=== PATIENT | female | born 1975 | race Caucasian/White ===

== ENCOUNTER 2017-05-28 22:13 | Emergency (ER) | payer OTHER ==
[2017-05-28 22:21] VITALS: BP 157/97; PULSE 76; TEMP 98.3; BMI 24.3
--- NOTE | 2017-05-28 22:27 | PDOC ---
History of Present Illness - General Chief Complaint: Chest Pain Stated Complaint: CHEST PAIN Time Seen by Provider: 05/28/17 22:19 - History of Present Illness Initial Comments: 05/28/17 22:37 This otherwise healthy 41-year-old woman presents with a few hour history of right sided anterior chest pain, worsened with coughing/laughing but not worsened with deep breathing. She denies shortness of breath or severe cough. She has not had any recent trauma or overuse involving upper body muscles. She denies fever or chills; no upper respiratory infection symptoms. Of note, her school-aged daughter has febrile viral illness. The patient has developed labial herpes "cold sore" earlier today. No history of hypertension/diabetes mellitus/obesity/hyperlipidemia/early history of cardiac disease in family No history of smoking/lower extremity pain or edema/prolonged immobilization/ recent surgery or malignancy/estrogen therapy Past History - Past Medical History Allergies/Adverse Reactions: Allergies Allergy/AdvReac Type Severity Reaction Status Date / Time No Known Allergies Allergy Verified 05/28/17 22:15 Home Medications: Ambulatory Orders Levothyroxine Sodium [Synthroid] 137 mcg PO DAILY 05/28/17 COPD: No Thyroid Disease: Yes - Suicide/Smoking/Psychosocial Hx Smoking History: Never smoked Have you smoked in the past 12 months: No Information on smoking cessation initiated: No Hx Alcohol Use: No Drug/Substance Use Hx: No Substance Use Type: None Review of Systems - Review of Systems Able to Perform ROS?: Yes Comments:: 12 point review of systems is negative except for what is noted in the history of present illness *Physical Exam - Vital Signs Last Vital Signs Temp Pulse Resp BP Pulse Ox 98.3 F 76 16 157/97 100 05/28/17 22:17 05/28/17 22:17 05/28/17 22:17 05/28/17 22:17 05/28/17 22:17 - Physical Exam Comments: GENERAL: Adult female, alert and oriented 3, in no acute distress; heart rate 79; pulse oximetry 100% on room air HEAD: Normal with no signs of trauma. EYES: PERRLA, EOMI, sclera anicteric, conjunctiva clear. ENT: Ears normal, nares patent, oropharynx clear without exudates. Moist mucous membranes. NECK: Normal range of motion, supple without lymphadenopathy, JVD, or masses. LUNGS: Breath sounds equal, clear to auscultation bilaterally. No wheezes, and no crackles. No chest wall tenderness/crepitus/step offs HEART:Regular rate and rhythm, normal S1 and S2 without murmur, rub or gallop. ABDOMEN:.normal bowel sounds No guarding,tenderness or rebound.No masses No distention. EXTREMITIES: Normal range of motion, no edema. No clubbing or cyanosis. No erythema, or tenderness. NEUROLOGICAL: Cranial nerves II through XII grossly intact. Normal speech. No focal neurological deficits. MUSCULOSKELETAL: Back non-tender to palpation, no CVA tenderness SKIN: Warm, Dry, normal turgor, no rashes or lesions noted. Twelve-lead electrocardiogram reveals a sinus rhythm at 71 bpm; there is no evidence of acute ST or T-wave abnormality; axis, waveforms and intervals are normal ED Treatment Course - LABORATORY CBC & Chemistry Diagram: 05/28/17 22:40 05/28/17 22:40 - ADDITIONAL ORDERS Additional order review: Laboratory Results 05/28/17 05/28/17 22:40 22:40 D-Dimer < 200 Sodium 139 Potassium 3.9 Chloride 104 Carbon Dioxide 29 H Anion Gap 6 L BUN 15 Creatinine 0.8 Creat Clearance w eGFR > 60 Random Glucose 123 H Calcium 9.0 Total Bilirubin 0.5 AST 25 ALT 22 Alkaline Phosphatase 43 Creatine Kinase 204 H Creatine Kinase Index 1.4 CK-MB (CK-2) 2.9 Troponin I < 0.03 L Total Protein 6.6 Albumin 4.0 05/28/17 22:40 RBC 4.14 MCV 93.7 MCHC 35.7 RDW 12.0 MPV 8.6 Neutrophils % 40.5 L Lymphocytes % 46.4 H Monocytes % 8.2 Eosinophils % 4.5 Basophils % 0.4 Progress Note - Progress Note Progress Note: 12-lead electrocardiogram shows normal sinus rhythm at 71 bpm; intervals/axis and wave forms are all normal. No evidence of acute ST or T-wave abnormalities. Laboratory evaluation including cardiac enzymes and d-dimer are normal. Clinical presentation most consistent with costochondritis or chest wall muscle strain. Since the patient has been exposed to acute viral infection in her daughter over the last several days, and has developed herpes labialis of the last 24 hours, she may also be developing acute viral infection. In any case, she should rest and drink plenty of fluids. She should avoid strenuous upper body exercise for the next several days. She can use nonsteroidal anti- inflammatories as needed for her chest wall pain. She should return to the emergency room if she has severe symptoms that are persistent. Meanwhile, she should follow-up with her general doctor within the next 7 days *DC/Admit/Observation/Transfer Diagnosis at time of Disposition: Atypical chest pain - Discharge Dispostion Disposition: HOME Condition at time of disposition: Stable - Referrals - Patient Instructions Printed Discharge Instructions: DI for Atypical Chest Pain Additional Instructions: Rest; drink plenty of fluids Acetaminophen/ibuprofen/naproxen as needed for pain Avoid strenuous activity/exercise especially of upper body for the next week Return if you have more severe pain or shortness of breath Follow-up with your doctor within 1 week - Post Discharge Activity
[2017-05-28 22:59] LABS: BASO % 0.4 % (0-2.0); EOS % 4.5 % (0-4.5); MCH 33.4 pg (25.7-33.7); MCHC 35.7 g/dl (32.0-36.0); MEAN CELL VOLUME 93.7 fl (80-96); MEAN PLT VOLUME 8.6 fl (7.5-11.1); NEUT % 40.5 % (42.8-82.8); PLATELET COUNT 229 K/MM3 (134-434); WHITE BLOOD COUNT 6.3 K/mm3 (4.0-10.8)
[2017-05-28 23:08] LABS: ALK PHOS 43 U/L (32-92); ANION GAP 6 (8-16); BILIRUBIN,TOTAL 0.5 mg/dl (0.2-1.0); CO2 29 mmol/L (22-28); CPK 204 IU/L (26-192); CREATININE 0.8 mg/dl (0.6-1.3); GLUCOSE,RANDOM 123 mg/dl (74-106); SGOT/AST 25 U/L (10-42); SGPT/ALT 22 U/L (10-40); TOT PROT 6.6 g/dl (6.4-8.3)
[2017-05-28 23:17] LABS: TROPONIN I (DFP) < 0.03 ng/ml (0.03-0.50)
--- NOTE | 2017-05-31 19:36 | EKG ---
Test Reason : Blood Pressure : / mmHG Vent. Rate : 071 BPM Atrial Rate : 071 BPM P-R Int : 112 ms QRS Dur : 086 ms QT Int : 400 ms P-R-T Axes : 047 037 039 degrees QTc Int : 434 ms POOR DATA QUALITY, INTERPRETATION MAY BE ADVERSELY AFFECTED SINUS RHYTHM CANNOT RULE OUT SEPTAL INFARCT NO PREVIOUS ECGS AVAILABLE Confirmed by DEEPAK EATON MD ([id number] on 05/31/2017 7:35:41 PM Referred By: MARGUERITE Confirmed By:DEEPAK EATON MD
== END 2017-05-29 00:41 | disposition home or self-care (01) ==
LOC: FER 22:13
DX: R07.89 Other chest pain (principal); E07.9 Disorder of thyroid, unspecified
CPT/HCPCS: 36415; 80053; 82550; 82553; 84484; 85025; 85379; 93005; 93010; 99281-25